=== PATIENT | female | born 1935 | race Caucasian/White ===

== ENCOUNTER 2018-10-19 13:57 | Observation (INO) ==
[2018-10-19] MEDS ORDERED: Sod Chloride 0.9% Inj 1,000 ML IV.CONT SCH (14:00)
[2018-10-19 14:09] LABS: Baso # (Auto) 0.1 th/mm3 (0.0-0.2); Eos # (Auto) 0.3 th/mm3 (0.0-0.4); Eos % (Auto) 4.1 % (0.0-4.0); Hemoglobin 12.1 gm/dL (11.6-15.3); Lymph # (Auto) 1.7 th/mm3 (1.0-4.8); Lymph % (Auto) 22.7 % (9.0-44.0); Mean Corpuscular HGB Conc 32.8 % (32.0-36.0); Mean Corpuscular Hemoglobin 28.7 pg (27.0-34.0); Mean Corpuscular Volume 87.6 fL (80.0-100.0); Mean Platelet Volume 8.9 fL (7.0-11.0); Mono # (Auto) 0.6 th/mm3 (0.0-0.9); Mono % (Auto) 8.3 % (0.0-8.0); Neut # (Auto) 4.7 th/mm3 (1.8-7.7); Neut % (Auto) 63.9 % (16.0-70.0); Platelet Count 290 th/mm3 (150-450); Red Blood Count 4.22 mil/mm3 (4.00-5.30); Red Cell Distribution Width 13.1 % (11.6-17.2); White Blood Count 7.4 th/mm3 (4.0-11.0)
[2018-10-19] MEDS ORDERED: Aspirin 325 MG Tablet PO ONE (14:12)
--- NOTE | 2018-10-19 14:12 | ED ---
HPI General Chief Complaint: Stroke Alert Stated Complaint: stroke Time Seen by Provider: 10/19/18 14:00 Source: patient Mode of arrival: EMS Limitations: no limitations History of Present Illness HPI Narrative: 83-year-old female with history of diabetes and TIA presents via [facility]. EVAC reports that the patient was eating lunch at [employer] with her daughter when her daughter noticed that she was having some mild difficulty eating. EMS was called. Initial stroke assessment revealed some left facial weakness and left arm drift. Patient only complained of feeling mildly dizzy and slightly confused. Symptom onset prior to EMS 10 minutes. Symptom onset prior to ER evaluation 20 minutes. Patient denies any nausea or vomiting. Reassessment in route revealed resolution of symptoms. Random blood sugar 233. Patient is not on any blood thinners. Denies any visual loss. Peripheral vision intact.Alert and oriented. Initial NIH score of 0 Onset (ago): minute(s) (20) Timing confirmed by: family member Location: Reports left face and left arm History of same: Yes Severity: mild Quality: Reports weak Relieving factors: rest Exacerbating factors: none Context: Reports sudden onset On Anticoagulants: No Associated symptoms: Reports denies other symptoms Treatments Prior to Arrival: Reports none Related Data Home Medications Medication Instructions Recorded Confirmed carvedilol [Coreg] 6.25 mg PO BID 10/19/18 10/19/18 citalopram 40 mg PO DAILY 10/19/18 10/19/18 ezetimibe [Zetia] 10 mg PO DAILY 10/19/18 10/19/18 gemfibrozil [Lopid] 600 mg PO DAILY 10/19/18 10/19/18 isosorbide mononitrate 30 mg PO DAILY 10/19/18 10/19/18 losartan [Cozaar] 100 mg PO DAILY 10/19/18 10/19/18 metformin 500 mg PO BID PRN 10/19/18 10/19/18 nifedipine [Procardia XL] 60 mg PO DAILY 10/19/18 10/19/18 Allergies Allergy/AdvReac Type Severity Reaction Status Date / Time cefaclor Allergy Severe rash Unverified 04/10/17 16:08 ciprofloxacin Allergy Severe rash Unverified 04/10/17 16:08 diphenhydramine Allergy Severe Unverified 04/10/17 16:08 Sulfa (Sulfonamide Allergy Severe large Unverified 04/10/17 16:08 Antibiotics) blistered areas on extremities amoxicillin Allergy Unknown Unverified 04/10/17 16:08 nitrofurantoin Allergy Unknown Unverified 04/10/17 16:08 Review of Systems ROS: all other systems reviewed are negative PMFSH History History Provided By: [employer]ician [employer] / EMT Social History Social History Second Hand Smoke Exposure: No Smoking Status: Never smoker How Often Do You Have a Drink Containing Alcohol: Never Recent Travel in [facility] within the Last 8 Weeks: No Recent Out of Country Travel within the Last 8 Weeks: No Exam Narrative Exam Narrative: GENERAL: Alert and oriented SKIN: Focused skin assessment warm/dry. HEAD: Atraumatic. Normocephalic. EYES: Pupils equal and round. No scleral icterus. No injection or drainage. ENT: No nasal bleeding or discharge. Mucous membranes pink and moist. NECK: Trachea midline. No JVD. CARDIOVASCULAR: Regular rate and rhythm. No murmur appreciated. RESPIRATORY: No accessory muscle use. Clear to auscultation. Breath sounds equal bilaterally. GASTROINTESTINAL: Abdomen soft, non-tender, nondistended. Hepatic and splenic margins not palpable. MUSCULOSKELETAL: No obvious deformities. No clubbing. No cyanosis. No edema. NEUROLOGICAL: Awake and alert. No obvious cranial nerve deficits. Motor grossly within normal limits. Normal speech. PSYCHIATRIC: Appropriate mood and affect; insight and judgment normal. Course Initial Documented Vital Signs Temperature 98.2 F 10/19/18 14:14 Pulse Rate 77 10/19/18 14:14 Respiratory Rate 16 10/19/18 14:14 Blood Pressure 164/74 H 10/19/18 14:14 Pulse Oximetry 98 10/19/18 14:14 Last Documented Vital Signs Temperature 98.2 F 10/19/18 14:14 Pulse Rate 77 10/19/18 14:14 Respiratory Rate 16 10/19/18 14:14 Blood Pressure 164/74 H 10/19/18 14:14 Pulse Oximetry 98 10/19/18 14:14 Medical Decision Making MDM Narrative Medical decision making narrative: NIH score of 0, ABCD score 3. Spoke with Dr. Vidal with recommendations of CT and CTA, 325 mg of aspirin, head of bed flat and normal saline at 100 cc an hour. Spoke with Dr. Argueta radiology head CT is negative. Discussion with daughter reveals that [place] and they have no PCP or neurologist. Per the daughter patient is at baseline. Spoke to Dr. knapp who is in agreement will admit. Medical Screen Exam Complete: Yes Emergency Medical Condition: Yes Differential Diagnosis Differential Diagnosis: CVA, TIA, hyperglycemia, confusion Medical Records Medical records reviewed: Yes I reviewed the patient's medical records. Lab Data Lab results reviewed: Yes I reviewed the patient's lab results. Result diagrams: 10/19/18 13:35 10/19/18 13:35 Lab Results 10/19/18 10/19/18 10/19/18 Range/Units 13:35 13:35 13:35 CBC w Diff Auto diff final WBC 7.4 (4.0-11.0) th/mm3 RBC 4.22 (4.00-5.30) mil/mm3 Hgb 12.1 (11.6-15.3) gm/dL Hct 37.0 (35.0-46.0) % MCV 87.6 (80.0-100.0) fL MCH 28.7 (27.0-34.0) pg MCHC 32.8 (32.0-36.0) % RDW 13.1 (11.6-17.2) % Plt Count 290 (150-450) th/mm3 MPV 8.9 (7.0-11.0) fL Neut % (Auto) 63.9 (16.0-70.0) % Lymph % (Auto) 22.7 (9.0-44.0) % [place] % (Auto) 8.3 H (0.0-8.0) % Eos % (Auto) 4.1 H (0.0-4.0) % Baso % (Auto) 1.0 (0.0-2.0) % Neut # (Auto) 4.7 (1.8-7.7) th/mm3 Lymph # (Auto) 1.7 (1.0-4.8) th/mm3 [place] # (Auto) 0.6 (0.0-0.9) th/mm3 Eos # (Auto) 0.3 (0.0-0.4) th/mm3 Baso # (Auto) 0.1 (0.0-0.2) th/mm3 WBC Differential . Differential Comment . PT 10.0 (9.8-11.6) sec INR 1.0 Ratio APTT 24.9 (23.4-31.7) sec Fibrinogen 372 (227-377) mg/dL Sodium 132 L (136-145) meq/L Potassium 3.7 (3.5-5.1) meq/L Chloride 98 (98-107) meq/L Carbon Dioxide 25.3 (21.0-32.0) meq/L Anion Gap 9 (5-15) meq/L BUN 18 (7-18) mg/dL Creatinine 0.72 (0.50-1.00) mg/dL Estimated GFR 77 L (>89) mL/min POC Glucose (68-110) mg/dl Random Glucose 246 H (74-106) mg/dL Calcium 9.3 (8.5-10.1) mg/dL Total Creatine Kinase 33 (26-192) U/L Troponin I Less than 0.02 L (0.02-0.05) ng/mL Urine Color (Yellw/Straw) Urine Clarity (Clear) Urine pH (5.0-8.5) Ur Specific [place] (1.002-1.035) Urine Protein (Neg-Trace) mg/dL Urine Glucose (UA) (Negative) mg/dL Urine Ketones (Negative) mg/dL Urine Occult Blood (Negative) Urine Nitrate (Negative) Urine Bilirubin (Negative) Urine Urobilinogen (Less than 2) mg/dL Ur Leukocyte Esterase (Negative) 10/19/18 10/19/18 Range/Units 14:22 14:53 CBC w Diff WBC (4.0-11.0) th/mm3 RBC (4.00-5.30) mil/mm3 Hgb (11.6-15.3) gm/dL Hct (35.0-46.0) % MCV (80.0-100.0) fL MCH (27.0-34.0) pg MCHC (32.0-36.0) % RDW (11.6-17.2) % Plt Count (150-450) th/mm3 MPV (7.0-11.0) fL Neut % (Auto) (16.0-70.0) % Lymph % (Auto) (9.0-44.0) % [place] % (Auto) (0.0-8.0) % Eos % (Auto) (0.0-4.0) % Baso % (Auto) (0.0-2.0) % Neut # (Auto) (1.8-7.7) th/mm3 Lymph # (Auto) (1.0-4.8) th/mm3 [place] # (Auto) (0.0-0.9) th/mm3 Eos # (Auto) (0.0-0.4) th/mm3 Baso # (Auto) (0.0-0.2) th/mm3 WBC Differential Differential Comment PT (9.8-11.6) sec INR Ratio APTT (23.4-31.7) sec Fibrinogen (227-377) mg/dL Sodium (136-145) meq/L Potassium (3.5-5.1) meq/L Chloride (98-107) meq/L Carbon Dioxide (21.0-32.0) meq/L Anion Gap (5-15) meq/L BUN (7-18) mg/dL Creatinine (0.50-1.00) mg/dL Estimated GFR (>89) mL/min POC Glucose 256 (68-110) mg/dl Random Glucose (74-106) mg/dL Calcium (8.5-10.1) mg/dL Total Creatine Kinase (26-192) U/L Troponin I (0.02-0.05) ng/mL Urine Color [place] (Yellw/Straw) Urine Clarity Clear (Clear) Urine pH 5.0 (5.0-8.5) Ur Specific [place] 1.010 (1.002-1.035) Urine Protein 100 H (Neg-Trace) mg/dL Urine Glucose (UA) 250 H (Negative) mg/dL Urine Ketones Trace H (Negative) mg/dL Urine Occult Blood Negative (Negative) Urine Nitrate Positive H (Negative) Urine Bilirubin Negative (Negative) Urine Urobilinogen 8 or greater (Less than 2) mg/dL Ur Leukocyte Esterase Trace H (Negative) Imaging Data Radiologist's impression: Head CT 10/19/18 14:00 CONCLUSION: Age-related findings. No acute intracranial findings. Report was called by Dr. Argueta to Dr. Mckeon at 1420. Head CTA 10/19/18 14:00 CONCLUSION: No evidence of significant intracranial stenosis. Report was called by Dr. Argueta to Dr. Vidal at 1430. Neck CTA 10/19/18 14:00 CONCLUSION: No evidence of significant carotid stenosis. Report was called by Dr. Argueta to Dr. Vidal at 1430.. ECG Data Attestation: I personally reviewed and interpreted this ECG as follows: (EKG reveals sinus rhythm rate of 78, minimal ST segment changes in inferior leads, no previous EKG for comparison) Discharge Plan Discharge Disposition Patient Disposition: ED Admit(ED Internal Use Only) Discharge Condition Condition: Good Discharge Order Discharge Orders: ED Use Only Admit Order (Routine); Ordered 10/19/18 Ordered By: Pop Mckeon Physicians Team ED Provider: Pop Mckeon Primary Care Provider: Primary Care Karina De La O Other Providers: Chilo Glass Rxs /Orders / Referrals /Forms Prescriptions: No Action carvedilol [Coreg] 6.25 mg Tablet 6.25 mg PO BID RF: 0 isosorbide mononitrate 30 mg Tablet Extended Release 24 Hr 30 mg PO DAILY RF: 0 gemfibrozil [Lopid] 600 mg Tablet 600 mg PO DAILY RF: 0 losartan [Cozaar] 100 mg Tablet 100 mg PO DAILY RF: 0 citalopram 40 mg Tablet 40 mg PO DAILY RF: 0 nifedipine [Procardia XL] 60 mg Tablet Extended Release 24hr 60 mg PO DAILY RF: 0 ezetimibe [Zetia] 10 mg Tablet 10 mg PO DAILY RF: 0 metformin 500 mg Tablet 500 mg PO BID PRN (Reason: Hyperglycemia) RF: 0 Status ED Status: With Doctor
[2018-10-19 14:17] LABS: Chloride 98 meq/L (98-107); Potassium 3.7 meq/L (3.5-5.1); Sodium 132 meq/L (136-145)
[2018-10-19 14:19] LABS: Calcium 9.3 mg/dL (8.5-10.1)
[2018-10-19 14:20] LABS: Anion Gap 9 meq/L (5-15); Blood Urea Nitrogen 18 mg/dL (7-18); Carbon Dioxide 25.3 meq/L (21.0-32.0); Glucose,Random 246 mg/dL (74-106)
[2018-10-19 14:23] LABS: Glomerular Filtration Rate 77 mL/min (>89)
--- NOTE | 2018-10-19 14:26 | CT ---
EXAM DATE: 10/19/2018 2:08 PM EST AGE/SEX: 83 years / Female INDICATIONS: Stroke Alert CLINICAL DATA: This is the patient's initial encounter. Patient reports that signs and symptoms have been present for 1 day and indicates a pain score of 0/10. MEDICAL/SURGICAL HISTORY: Non-responsive. Non-responsive. RADIATION DOSE: 58.25 CTDI (mGy) COMPARISON: [facility], CT BRAIN W/O CONTRAST, 01/27/2015. . TECHNIQUE: CT of the head without contrast. Using automated exposure control and adjustment of the mA and/or kV according to patient size, radiation dose was kept as low as reasonably achievable to ob tain optimal diagnostic quality images. DICOM format image data is available electronically for revi ew and comparison. FINDINGS: Cerebrum: There is diffuse prominence of ventricles, sulci, and cisterns indicating age-appropriate atrophy. No evidence of midline shift, mass lesion, hemorrhage or acute infarction. No extraaxial f luid collections are seen. Posterior Fossa: The cerebellum and brainstem are intact. The 4th ventricle is midline. The cerebe llopontine angle is unremarkable. Extracranial: The visualized portion of the orbits is intact. Skull: The calvaria is intact. No evidence of skull fracture. CONCLUSION: Age-related findings. No acute intracranial findings. Report was called by Dr. Argueta to Dr. Mckeon at 1420. Electronically signed by: Rudy Argueta MD Board Certified Radiologist 10/19/2018 2:25 PM EST
--- NOTE | 2018-10-19 14:32 | CT ---
EXAM DATE: 10/19/2018 2:26 PM EST AGE/SEX: 83 years / Female INDICATIONS: Stroke Alert CLINICAL DATA: This is the patient's initial encounter. Patient reports that signs and symptoms have been present for 1 day and indicates a pain score of Nonresponsive. MEDICAL/SURGICAL HISTORY: Non-responsive. Non-responsive. RADIATION DOSE: 42.78 CTDI (mGy) ; Combined studies COMPARISON: No prior exams available for comparison. TECHNIQUE: Volumetric scanning was performed using a multi-row detector CT scanner during bolus infu heriberto of 75ML ml Visipaque 320 (iodixanol) nonionic water-soluble contrast as a cumulative dose for m ultiple exams. The data was post processed with a variety of visualization algorithms including ful l volume maximum intensity projection, multi-planar sliding thin slab reformation, curved planar refo rmation, and surface rendering techniques. Using automated exposure control and adjustment of the mA and/or kV according to patient size, radiation dose was kept as low as reasonably achievable to obta in optimal diagnostic quality images. DICOM format image data is available electronically for review and comparison. FINDINGS: There is excellent visualization of the major intracranial arteries out to the second-order branch ve ssels. There is no evidence for aneurysm, vessel truncation or stenosis, and no evidence for vascula r malformation. CONCLUSION: No evidence of significant intracranial stenosis. Report was called by Dr. Argueta to Dr. Vidal at 1430. Electronically signed by: Rudy Argueta MD Board Certified Radiologist 10/19/2018 2:31 PM EST
[2018-10-19] MEDS: Sod Chloride 0.9% Inj 1,000 ML IV.CONT SCH ×2 (14:34→17:25)
[2018-10-19 14:36] LABS: Creatine Kinase 33 U/L (26-192)
[2018-10-19 14:37] LABS: Activated Partial Thrombo Time 24.9 sec (23.4-31.7)
--- NOTE | 2018-10-19 15:00 | CT ---
EXAM DATE: 10/19/2018 2:56 PM EST AGE/SEX: 83 years / Female INDICATIONS: Stroke Alert CLINICAL DATA: This is the patient's initial encounter. Patient reports that signs and symptoms have been present for 1 day and indicates a pain score of Nonresponsive. MEDICAL/SURGICAL HISTORY: Non-responsive. Non-responsive. RADIATION DOSE: 42.78 CTDI (mGy) ; Combined studies COMPARISON: . TECHNIQUE: Volumetric scanning was performed using a multirow detector CT scanner during bolus infus ion of 75ML ml Visipaque 320 (iodixanol) nonionic water-soluble contrast as a cumulative dose for mu ltiple exams. The data was postprocessed with a variety of visualization algorithms including full- volume maximum intensity projection, multiplanar sliding thin-slab reformation, curved-planar reforma tion, and surface-rendering techniques. Using automated exposure control and adjustment of the mA an d/or kV according to patient size, radiation dose was kept as low as reasonably achievable to obtain optimal diagnostic quality images. DICOM format image data is available electronically for review an d comparison. Percent stenosis is calculated using the diameter of the stenotic region over the diameter of the nor mal distal internal carotid artery. FINDINGS: Aortic Arch: There is a three-vessel origin of the great vessels from the aorta. No evidence of ost ial narrowing Right Carotid: The common carotid artery is intact. The carotid bulb has a normal configuration wit hout ulceration or narrowing. The internal carotid artery lumen is smooth without stenosis. The ext ernal carotid artery is intact. Left Carotid: The common carotid artery is intact. The carotid bulb has a normal configuration with out ulceration or narrowing. The internal carotid artery lumen is smooth without stenosis. The exte rnal carotid artery is intact. Vertebrals: The vertebral arteries have a symmetric diameter. No stenotic lesions are seen. CONCLUSION: No evidence of significant carotid stenosis. Report was called by Dr. Argueta to Dr. Vidal at 1430.. Electronically signed by: Rudy Argueta MD Board Certified Radiologist 10/19/2018 2:59 PM EST
[2018-10-19 15:04] LABS: Bilirubin,Urine Negative (Negative); Clarity,Urine Clear (Clear); Glucose,Urine (UA) 250 mg/dL (Negative); Leukocyte Esterase,Urine Trace (Negative); Nitrite,Urine Positive (Negative); Urobilinogen,Urine 8 or Greater mg/dL (Less than 2)
[2018-10-19 15:14] LABS: Color,Urine Orange (Yellw/Straw)
[2018-10-19 15:16] LABS: Bacteria,Urine Rare /hpf; Squamous Epithelial Cell,Urine 0-5 /hpf (0-5)
[2018-10-19 15:28] LABS: Amphetamine Screen,Urine Neg (Neg); Barbiturate Screen,Urine Neg (Neg)
[2018-10-19 15:37] LABS: Cocaine Screen,Urine Neg (Neg)
[2018-10-19 15:39] LABS: Cannabinoid Screen,Urine Neg (Neg); Opiate Screen,Urine Neg (Neg)
[2018-10-19] MEDS ORDERED: Dextrose 50% in Water 50 ML Vial IV.PUSH PRN (15:42)
[2018-10-19] MEDS ORDERED: Acetaminophen 325 MG Tablet PO PRN (15:49)
--- NOTE | 2018-10-19 16:53 | P.HPIM ---
History of Present Illness Primary Care Physician: No Primary Care Physician Chief Complaint: Blank stare, left facial weakness and left arm weakness History of Present Illness: 83-year-old female who past medical history of diabetes, hyperlipidemia, hypertension and previous history of TIA was brought to the ED via [facility] for evaluation of dizziness, blank staring and left facial and left upper extremity weakness during lunchtime at [facility]. Patient was in the company of her daughter who noticed her mom to be staring out of food for blank stare and looking quite dizzy. This progressed to left upper extremity weakness. There was no report of seizure-like activity. Patient denies any slurring of the speech or loss of consciousness. initial head CAT scan was negative. Patient also complained of dysuria and had abnormal UA in the ED which was positive for nitrate. She is currently afebrile. She did return from her home country of [facility] and has been back since of last year. Review of Systems Review of Systems: all other systems reviewed are negative PMFSH Family History Family History Other Diabetes Social History Social History Second Hand Smoke Exposure: No Smoking Status: Never smoker How Often Do You Have a Drink Containing Alcohol: Never Recent Travel in [facility] within the Last 8 Weeks: No Recent Out of Country Travel within the Last 8 Weeks: No Immunization History Tetanus Immunization: Unsure Medications and Allergies Allergies Allergy/AdvReac Type Severity Reaction Status Date / Time cefaclor Allergy Severe rash Verified 10/19/18 15:49 ciprofloxacin Allergy Severe rash Verified 10/19/18 15:49 diphenhydramine Allergy Severe UNKNOWN Verified 10/19/18 15:49 Sulfa (Sulfonamide Allergy Severe large Verified 10/19/18 15:49 Antibiotics) blistered areas on extremities amoxicillin Allergy Unknown PER Verified 10/19/18 15:49 DAUGHTER NO REACTION nitrofurantoin Allergy Unknown UNKNOWN Verified 10/19/18 15:49 Home Medications Medication Instructions Recorded Confirmed Type carvedilol [Coreg] 6.25 mg PO BID 10/19/18 10/19/18 History citalopram 40 mg PO DAILY 10/19/18 10/19/18 History ezetimibe [Zetia] 10 mg PO DAILY 10/19/18 10/19/18 History gemfibrozil [Lopid] 600 mg PO DAILY 10/19/18 10/19/18 History isosorbide mononitrate 30 mg PO DAILY 10/19/18 10/19/18 History losartan [Cozaar] 100 mg PO DAILY 10/19/18 10/19/18 History metformin 500 mg PO BID PRN 10/19/18 10/19/18 History nifedipine [Procardia XL] 60 mg PO DAILY 10/19/18 10/19/18 History Active Medications: Active Medications Acetaminophen (Tylenol) 650 mg PO Q4H PRN PRN Reason: Temp > 100.4 Aspirin (Aspirin) 325 mg PO DAILY [facility] Carvedilol (Coreg) 6.25 mg PO BID [facility] Citalopram Hydrobromide (Celexa) 40 mg PO DAILY [facility] Dextrose (D50w Vial) 50 ml IV.PUSH UNSCH PRN PRN Reason: per Hypoglycemic Protocol Ezetimibe (Zetia) 10 mg PO DAILY [facility] Enalaprilat (Vasotec Inj) 1.25 mg IV.PUSH Q4H PRN PRN Reason: SBP> OR = 180, DBP> OR = 100 Gemfibrozil (Lopid) 600 mg PO DAILY [facility] Glucagon (Glucagon Inj) 1 mg OTHER UNSCH PRN PRN Reason: per Hypoglycemic Protocol Sodium Chloride (Ns Inj) 1,000 mls @ 100 mls/hr IV.CONT .Q10H [facility] Last Infusion: 10/19/18 16:17 Dose: 100 mls/hr Sodium Chloride (Ns Inj) 1,000 mls @ 70 mls/hr IV.CONT .[id number] [facility] Ceftriaxone Sodium 1,000 mg/ (Sodium Chloride) 100 mls @ 200 mls/hr IV.SIG Q24H [facility] Insulin Aspart (Novolog Insulin Correctional Sugar Inj) 0 unit SQ ACHS PRN; Protocol PRN Reason: Per Protocol Isosorbide Mononitrate (Imdur) 30 mg PO DAILY [facility] Losartan Potassium (Cozaar) 100 mg PO DAILY [facility] Nifedipine (Procardia Xl) 60 mg PO DAILY [facility] Ondansetron HCl (Zofran Inj) 4 mg IV.PUSH Q6H PRN PRN Reason: NAUSEA Physical Exam Vital signs: Vital Signs 10/19/18 14:14 10/19/18 15:00 10/19/18 16:17 Temperature 98.2 F Pulse Rate 77 81 78 Respiratory Rate 16 16 16 Blood Pressure 164/74 H 164/66 H 158/77 H Pulse Oximetry 98 95 97 10/19/18 16:39 Temperature Pulse Rate Respiratory Rate Blood Pressure Pulse Oximetry 96 Intake & Output 10/18/18 10/19/18 10/19/18 18:59 06:59 18:59 Intake Total 169 / 169 Balance 169 / 169 Weight 63.3 kg Intake: IV 169 / 169 NS Inj 1,000 ML @ 100 mls/hr IV 169 / 169 .CONT .Q10H [facility] Rx#:[id number] Narrative: GENERAL: NAD SKIN: Warm and dry. HEAD: Atraumatic. Normocephalic. EYES: Pupils equal and round. No scleral icterus. No injection or drainage. ENT: No nasal bleeding or discharge. Mucous membranes pink and moist. NECK: Trachea midline. No JVD. CARDIOVASCULAR: Regular rate and rhythm. RESPIRATORY: No accessory muscle use. Clear to auscultation. Breath sounds equal bilaterally. GASTROINTESTINAL: Abdomen soft, non-tender, nondistended. Hepatic and splenic margins not palpable. MUSCULOSKELETAL: Extremities without clubbing, cyanosis, or edema. No obvious deformities. NEUROLOGICAL: Awake and alert. No obvious cranial nerve deficits. Motor grossly within normal limits. Five out of 5 muscle strength in the arms and legs. Normal speech. PSYCHIATRIC: Appropriate mood and affect; insight and judgment normal. Results Labs CBC & Chem 7: 10/19/18 13:35 10/19/18 13:[address] 10/19/18 14:00 CONCLUSION: Age-related findings. No acute intracranial findings. Report was called by Dr. Argueta to Dr. Mckeon at 1420. Head CTA 10/19/18 14:00 CONCLUSION: No evidence of significant intracranial stenosis. Report was called by Dr. Argueta to Dr. Vidal at 1430. Neck CTA 10/19/18 14:00 CONCLUSION: No evidence of significant carotid stenosis. Report was called by Dr. Argueta to Dr. Vidal at 1430.. Caprini VTE Risk Assessment Caprini VTE Risk Assessment: Moderate/High Risk (score >= 2) Caprini Risk Assessment Model: Point Value = 1 Point Value = 2 Point Value = 3 Point Value = 5 Age 41-60 Minor surgery BMI > 25 kg/m2 Swollen legs Varicose veins or History of unexplained or recurrent spontaneous Oral contraceptives or hormone replacement Sepsis (< 1 month) Serious lung disease, including pneumonia (< 1 month) Abnormal pulmonary function Acute myocardial infarction Congestive heart failure (< 1 month) History of inflammatory bowel disease Medical patient at bed rest Age 61-74 Arthroscopic surgery Major open surgery (> 45 min) Laparoscopic surgery (> 45 min) Malignancy Confined to bed (> 72 hours) Immobilizing plaster cast Central venous access Age >= 75 History of VTE Family history of VTE Factor V Leiden Prothrombin [id number] Lupus anticoagulant Anticardiolipin antibodies Elevated serum homocysteine Heparin-induced thrombocytopenia Other congenital or acquired thrombophilia Stroke (< 1 month) Elective arthroplasty Hip, pelvis, or leg fracture Acute spinal cord injury (< 1 month) Prophylaxis Regimen: Total Risk Factor Score Risk Level Prophylaxis Regimen 0-1 Low Early ambulation 2 Moderate Order ONE of the following: *Sequential Compression Device (SCD) *Heparin 5000 units SQ BID 3-4 Higher Order ONE of the following medications: *Heparin 5000 units SQ TID *Enoxaparin/Lovenox 40 mg SQ daily (WT < 150 kg, CrCl > 30 mL/min) *Enoxaparin/Lovenox 30 mg SQ daily (WT < 150 kg, CrCl > 10-29 mL/min) *Enoxaparin/Lovenox 30 mg SQ BID (WT < 150 kg, CrCl > 30 mL/min) AND/OR *Sequential Compression Device (SCD) 5 or more Highest Order ONE of the following medications: *Heparin 5000 units SQ TID (Preferred with Epidurals) *Enoxaparin/Lovenox 40 mg SQ daily (WT < 150 kg, CrCl > 30 mL/min) *Enoxaparin/Lovenox 30 mg SQ daily (WT < 150 kg, CrCl > 10-29 mL/min) *Enoxaparin/Lovenox 30 mg SQ BID (WT < 150 kg, CrCl > 30 mL/min) AND *Sequential Compression Device (SCD) Assessment and Plan Plan 83-year-old female with Transient ischemic attack Although head CT and CTA neck/head negative, will order brain MRI and MRA Continue with ischemic stroke protocol rule out ACS rule out per protocol with serial cardiac enzyme and EKGs Check EEG, 2D echo in Place Holter monitoring Status post aspirin 325 mg p.o. x1 in ED, continue with daily aspirin Neurology consultation pending PT/OT/speech therapy consult UTI Start Rocephin pending urine culture Diabetes type 2 Hold oral hypoglycemic agent and start insulin sliding scale with fingerstick blood glucose monitoring Hypertension Allow for permissive hypertension Hyperlipidemia Resume statin, check lipid profile DVT prophylaxis: Bilateral SCDs
[2018-10-19] MEDS: Insulin NovoLOG Aspart Correctional Sugar Inj SQ PRN (17:24)
--- NOTE | 2018-10-19 17:56 | ECG ---
Date Performed: 10/19/2018 Time Performed: 15:03:09 PTAGE: 83 years EKG: Sinus rhythm PROBABLE INFERIOR MYOCARDIAL INFARCTION ABNORMAL ECG PREVIOUS TRACING : 11/04/2014 15.34 Since the previous tracing, no significant change noted DOCTOR: Sam Yee Interpretating Date/Time 10/19/2018 17:55:02
[2018-10-19] MEDS ORDERED: Artificial Tears Opth Drops 15 ML Bottle EACH EYE PRN (18:00)
[2018-10-19 18:27] VITALS: RESP 20
--- NOTE | 2018-10-19 19:19 | MR ---
EXAM DATE: 10/19/2018 6:52 PM EST AGE/SEX: 83 years / Female INDICATIONS: . Left facial droop. CLINICAL DATA: This is the patient's initial encounter. Patient reports that signs and symptoms have been present for 1 day and indicates a pain score of 0/10. MEDICAL/SURGICAL HISTORY: Hypertension. Diabetes mellitus type II. Carotid endarterectomy. COMPARISON: No prior exams available for comparison. TECHNIQUE: 3D [id number] MRA was performed. Source images, multiplanar STS MIP, and 3D volum e MIP reconstructions were reviewed. FINDINGS: There is excellent visualization of the major intracranial arteries out to the second-order branch ve ssels. There is no evidence for aneurysm, vessel truncation or stenosis, and no evidence for vascula r malformation. The right posterior cerebral artery arises from the anterior circulation. Flow is see n in the anterior communicating artery and the left PCOM. CONCLUSION: 1. No evidence of vessel truncation. 2. Incomplete [place] of [place]. Electronically signed by: Femi Horne MD Board Certified Radiologist 10/19/2018 7:17 PM EST
--- NOTE | 2018-10-19 19:24 | MR ---
EXAM DATE: 10/19/2018 6:55 PM EST AGE/SEX: 83 years / Female INDICATIONS: . Left facial droop. CLINICAL DATA: This is the patient's initial encounter. Patient reports that signs and symptoms have been present for 1 day and indicates a pain score of 0/10. MEDICAL/SURGICAL HISTORY: Hypertension. Diabetes mellitus type II. Carotid endarterectomy. COMPARISON: No prior exams available for comparison. TECHNIQUE: Multiplanar, multisequence examination of the brain was performed without contrast. FINDINGS: Cerebrum: The ventricles and sulci and basal cisterns are prominent characteristic of moderate centr al cortical atrophy. There is also confluent T2 prolongation in the periventricular and centrum semio carly white matter characteristic of diffuse ischemic change. No evidence of acute blood products, mas s effect, or extra-axial fluid collections. Posterior Fossa: The cerebellum and brainstem are intact. The 4th ventricle is midline. The cerebel lopontine angle is unremarkable. The cerebellar tonsils are normal in position. Diffusion Imaging: No focal areas of restricted diffusion are seen. No evidence of acute infarction . Extracranial: The visualized portions of the orbits and paranasal sinuses are unremarkable. CONCLUSION: 1. No evidence of acute infarction. 2. 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 Electronically signed by: Femi Horne MD Board Certified Radiologist 10/19/2018 7:23 PM EST
[2018-10-19 21:24] LABS: Creatine Kinase 30 U/L (26-192)
[2018-10-19] MEDS: Carvedilol 6.25 MG Tablet PO SCH (22:42)
[2018-10-20] MEDS: Insulin NovoLOG Aspart Correctional Sugar Inj SQ PRN ×2 (02:55→12:11)
[2018-10-20 04:17] LABS: Creatine Kinase 29 U/L (26-192)
[2018-10-20] MEDS: Sod Chloride 0.9% Inj 1,000 ML IV.CONT SCH ×2 (08:20→08:22)
[2018-10-20] MEDS: Carvedilol 6.25 MG Tablet PO SCH (08:21)
[2018-10-20] MEDS ORDERED: Ezetimibe 10 MG Tablet PO SCH (09:00)
[2018-10-20] MEDS ORDERED: Isosorbide Mononitrate 30 MG ER 24HR Tablet (Imdur) PO SCH (09:00)
[2018-10-20] MEDS ORDERED: Gemfibrozil 600 MG Tablet PO SCH (09:00)
[2018-10-20] MEDS ORDERED: Aspirin 325 MG Tablet PO SCH (09:00)
[2018-10-20 12:07] VITALS: PULSE 71; TEMP 97.7; O2SAT 95
--- NOTE | 2018-10-20 12:27 | P.PNIM ---
Subjective Interval history: Follow-up TIA October 20, 2018 patient seen and examined, reports improvement of left facial and left upper extremity weakness since admission. CVA was ruled out for negative brain MRI. Patient complains of headache. BP currently labile. Physical Exam Vital signs: Vital Signs 10/19/18 14:14 10/19/18 15:00 10/19/18 16:17 Temperature 98.2 F Pulse Rate 77 81 78 Respiratory Rate 16 16 16 Blood Pressure 164/74 H 164/66 H 158/77 H Pulse Oximetry 98 95 97 10/19/18 16:39 10/19/18 17:43 10/19/18 19:30 Temperature 98.6 F Pulse Rate 74 Respiratory Rate 20 Blood Pressure 197/83 H Pulse Oximetry 96 94 L 95 10/19/18 20:00 10/20/18 00:00 10/20/18 04:59 Temperature 98.2 F 97.7 F 97.3 F L Pulse Rate 77 71 64 Respiratory Rate 20 20 20 Blood Pressure 200/86 H 186/77 H 165/73 H Pulse Oximetry 96 95 97 10/20/18 07:58 10/20/18 08:00 10/20/18 08:05 Temperature 97.4 F L Pulse Rate 64 65 Respiratory Rate 20 Blood Pressure 200/70 H Pulse Oximetry 97 97 10/20/18 09:10 10/20/18 11:43 Temperature 97.7 F Pulse Rate 67 71 Respiratory Rate 20 Blood Pressure 174/75 H 172/69 H Pulse Oximetry 95 Intake & Output 10/19/18 10/20/18 10/20/18 18:59 06:59 18:59 Intake Total 469 / 469 980 / 980 1000 / 1000 Balance 469 / 469 980 / 980 1000 / 1000 Weight 63.3 kg 65.4 kg Intake: IV 269 / 269 500 / 500 1000 / 1000 NS Inj 1,000 ML @ 70 mls/hr IV. 169 / 169 500 / 500 1000 / 1000 CONT .[id number] ALF Rx#: [id number] Rocephin Inj 1,000 MG In NS Inj 100 / 100 100 ML @ 200 mls/hr IV.SIG Q24H ALF Rx#:[id number] Oral 200 / 200 480 / 480 Other: # Voids 2 # Bowel Movements 2 Weight On Admission 65 kg Narrative: GENERAL: NAD SKIN: Warm and dry. HEAD: Atraumatic. Normocephalic. EYES: Pupils equal and round. No scleral icterus. No injection or drainage. ENT: No nasal bleeding or discharge. Mucous membranes pink and moist. NECK: Trachea midline. No JVD. CARDIOVASCULAR: Regular rate and rhythm. RESPIRATORY: No accessory muscle use. Clear to auscultation. Breath sounds equal bilaterally. GASTROINTESTINAL: Abdomen soft, non-tender, nondistended. Hepatic and splenic margins not palpable. MUSCULOSKELETAL: Extremities without clubbing, cyanosis, or edema. No obvious deformities. NEUROLOGICAL: Awake and alert. No obvious cranial nerve deficits. Motor grossly within normal limits. Five out of 5 muscle strength in the arms and legs. Normal speech. PSYCHIATRIC: Appropriate mood and affect; insight and judgment normal. Results Labs CBC & Chem 7: 10/19/18 13:35 10/19/18 13:35 Imaging Imaging: Impressions Head MRI 10/19/18 00:00 CONCLUSION: 1. No evidence of acute infarction. 2. 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 Head MRA 10/19/18 00:00 CONCLUSION: 1. No evidence of vessel truncation. 2. Incomplete [place] of [place]. Head CT 10/19/18 14:00 CONCLUSION: Age-related findings. No acute intracranial findings. Report was called by Dr. Argueta to Dr. Mckeon at 1420. Head CTA 10/19/18 14:00 CONCLUSION: No evidence of significant intracranial stenosis. Report was called by Dr. Argueta to Dr. Vidal at 1430. Neck CTA 10/19/18 14:00 CONCLUSION: No evidence of significant carotid stenosis. Report was called by Dr. Argueta to Dr. Vidal at 1430.. Assessment and Plan Plan 83-year-old female with Transient ischemic attack head CT and CTA neck/head negative Brain MRI and MRA negative ACS ruled out per protocol with serial cardiac enzyme and EKGs Coumadin check EEG outpatient Status post aspirin 325 mg p.o. x1 in ED, continue with daily aspirin Neurology consultation PRN PT/OT/speech therapy consult UTI Currently on Rocephin pending urine culture, will discharge on p.o. Macrobid times 7 days Diabetes type 2 Hold oral hypoglycemic agent and continue insulin sliding scale with fingerstick blood glucose monitoring Hemoglobin A1c pending Hypertension d/c permissive hypertension Resume oral antihypertensive medications Give clonidine 0.2 mg p.o. times 1 day to labile BP Hyperlipidemia Continue statin, lipid profile pending DVT prophylaxis: Bilateral SCDs Discussed with both patient and her daughter regarding establishing care with physician at family medicine residency program. Patient will also need outpatient referral to neurology Discharge patient to home Condition on discharge: Improved Regular Diet as tolerated Ad Eusebia activity Rx written: see EMR Follow-up with primary care physician in 1 week Neurology as needed Progress Note: Quality VTE Deep Vein Thrombosis/Pulmonary Embolism Present on Admission: No
[2018-10-20 12:46] LABS: Chol/HDL Ratio 2.18 Ratio; HDL Cholesterol 80.2 mg/dL (40.0-60.0)
[2018-10-20 13:34] LABS: Hemoglobin A1c 8.3 % (4.3-6.0)
[2018-10-20 14:25] VITALS: BP 113/56
--- NOTE | 2018-10-20 14:37 | ECHRPT ---
Indication: CVA/TIA CONCLUSIONS Normal left ventricular size. Wall thickness is measured at the upper limits of normal. The left ventricular systolic function is normal with an estimated ejection fraction in the range of 60-65%. There was limited left ventricular wall motion assessment due to poor endocardial visualization. Mild thickening of the mitral valve leaflets. Trace mitral valve regurgitation. Mitral annular calcification is present. Aortic valve sclerosis is present. Trace aortic valve regurgitation. The estimated pulmonary arterial pressure is 13 mmHg. BP: / HR: Rhythm: Sinus MEASUREMENTS (Male / Female) Normal Values Technical Quality:Poor 2D ECHO LV Diastolic Diameter PLAX 4.2 cm 4.2 - 5.9 / 3.9 - 5.3 cm LV Systolic Diameter PLAX 3.0 cm IVS Diastolic Thickness 1.1 cm 0.6 - 1.0 / 0.6 - 0.9 cm LVPW Diastolic Thickness 1.0 cm 0.6 - 1.0 / 0.6 - 0.9 cm LV Relative Wall Thickness 0.5 RV Internal Dim ED PLAX 2.9 cm LVOT Diameter 1.5 cm Aortic Root Diameter 3.1 cm LA Systolic Diameter LX 3.2 cm 3.0 - 4.0 / 2.7 - 3.8 cm M-MODE AV Cusp Separation MM 2.0 cm DOPPLER AV Peak Velocity 162.0 cm/s AV Peak Gradient 10.5 mmHg AV Mean Gradient 5.0 mmHg AV Velocity Time Integral 34.9 cm LVOT Peak Velocity 108.0 cm/s LVOT Peak Gradient 4.7 mmHg LVOT Velocity Time Integral 26.9 cm AV Area Cont Eq vti 1.4 cm AV Area Cont Eq pk 1.2 cm MV Peak Velocity 150.0 cm/s MV Peak Gradient 9.0 mmHg MV Mean Velocity 83.7 cm/s MV Mean Gradient 3.0 mmHg Mitral E Point Velocity 97.5 cm/s Mitral A Point Velocity 128.0 cm/s Mitral E to A Ratio 0.8 LV E' Lateral Velocity 7.0 cm/s Mitral E to LV E' Lateral Ratio 13.9 TR Peak Velocity 78.7 cm/s TR Peak Gradient 2.5 mmHg Right Atrial Pressure 10.0 mmHg Pulmonary Artery Systolic Pressu 12.5 mmHg Right Ventricular Systolic Press 12.5 mmHg PV Peak Velocity 109.0 cm/s PV Peak Gradient 4.8 mmHg FINDINGS LEFT VENTRICLE Normal left ventricular size. Wall thickness is measured at the upper limits of normal. The left ventricular systolic function is normal with an estimated ejection fraction in the range of 60-65%. There was limited left ventricular wall motion assessment due to poor endocardial visualization. Doppler parameters are consistent with impaired left ventricular relaxtion (grade 1 diastolic dysfun ction). RIGHT VENTRICLE Normal right ventricular size and systolic function. LEFT ATRIUM The left atrial size is normal. RIGHT ATRIUM The right atrial size is normal. ATRIAL SEPTUM Normal atrial septal thickness without atrial level shunting by limited color doppler interrogation. AORTA The aortic root and proximal ascending aorta are normal in size on limited imaging. MITRAL VALVE Mild thickening of the mitral valve leaflets. Trace mitral valve regurgitation. Mitral annular calcification is present. AORTIC VALVE Aortic valve sclerosis is present. Trace aortic valve regurgitation. TRICUSPID VALVE The estimated pulmonary arterial pressure is 13 mmHg. PULMONARY VALVE No pulmonary valve regurgitation or stenosis. VESSELS The inferior vena cava is normal in size. PERICARDIUM No pericardial effusion. Kishan Muller MD (Electronically Signed) Final Date:20 October 2018 14:35
--- NOTE | 2018-10-21 01:06 | MG ---
cc: Chilo Glass MD REFERRING PHYSICIAN: Adolph Garcia MD MEDICAL HISTORY: Angina pectoris, diabetes, high cholesterol, hypertension, TIA, endarterectomy, hyperlipidemia, blank stare upon eating lunch with left facial weakness and left arm weakness. MEDICATIONS: Aspirin, Coreg, Celexa, Zetia, Lopid, insulin aspart, Cozaar and Procardia. DESCRIPTION: The background rhythm is 8-9 Hz alpha located posteriorly with posterior . There is muscle movement artifact, eye blink artifact throughout the recording. Hyperventilation was not done. There were no electrographic seizures or epileptiform discharges noted during the recording. INTERPRETATION: This is a normal awake EEG with muscle artifact. Absence of electrographic seizures or epileptiform discharges does not exclude the diagnosis of epilepsy. Clinical correlation is recommended. Chilo Glass MD RGO/rw/do , 12:19 AM , 12:25 AM
== END 2018-10-20 15:56 | disposition home or self-care (01) ==
LOC: PHED 13:57 → INTOOBSV 15:32 → PHEDA 15:32 → PH3 16:15
PROVIDERS: ADMIT Hospitalist; ATTEND Hospitalist
DX: E11.9 Type 2 diabetes mellitus without complications; Z79.899 Other long term (current) drug therapy; I20.9 Angina pectoris, unspecified; G45.9 Transient cerebral ischemic attack, unspecified; Z79.4 Long term (current) use of insulin; I35.0 Nonrheumatic aortic (valve) stenosis; N39.0 Urinary tract infection, site not specified; E78.5 Hyperlipidemia, unspecified; Z86.73 Personal history of transient ischemic attack (TIA), and cerebral infarction without residual deficits; I10 Essential (primary) hypertension
CPT/HCPCS: 70450; 70496; 70498; 70544; 70551; 80048; 80061; 80307; 81001; 82550; 82948; 82962; 83036; 84484; 85025; 85384; 85610; 85730; 86850; 86900; 86901; 87077; 87086; 87186; 87493; 93005; 93306; 95819; 96361; 96365; 96372; 97162; 99285; G0378; G8987; G8988; J0696; J1815; J7030; Q9967